=== PATIENT | male | born 1945 | race Caucasian/White ===

== ENCOUNTER 2016-07-16 08:42 | Day surgery (SDC) | payer MEDICARE ==
[~2016-07-16] VITALS: Ht 175.3 cm; Wt 85.0 kg
[~2016-07-16 08:42] MED LIST: [UNRECOGNIZED DRUG - REMARK]; [UNRECOGNIZED DRUG - REMARK]
[2016-07-16 09:00] VITALS: BP 136/86; PULSE 75; RESP 20; TEMP 98.4; O2SAT 96
[2016-07-16] MEDS ORDERED: AMLO5CAP PO (09:17)
[2016-07-16] MEDS ORDERED: SODIUM CHLOR 0.9% 1000 ML IV SCH (10:00)
[2016-07-16] MEDS ORDERED: LIDOCAINE 1%/EPINEPHrine 1:100,000 SOLN 20 ML VIAL ONE (10:33)
[2016-07-16] MEDS ORDERED: fentaNYL CITRATE 250 MCG/5 ML AMP ONE (10:50)
[2016-07-16] MEDS ORDERED: MIDAZOLAM HCL 5 MG/5 ML VIAL ONE (10:51)
[2016-07-16] MEDS ORDERED: THROMBIN (TOPICAL) 5,000 UNIT VIAL ONE (11:14)
[2016-07-16 11:40] VITALS: BP 126/76; PULSE 82; RESP 20; TEMP 97.9; O2SAT 95
[2016-07-16 11:55] VITALS: BP 117/75; PULSE 74; RESP 20; O2SAT 95
[2016-07-16 12:35] VITALS: BP 106/75; PULSE 74; RESP 20; O2SAT 97
--- NOTE | 2016-07-16 13:39 | RADRPT ---
EXAM DATE/TIME: 07/16/2016 11:05 [facility] COMPARISON: No previous studies available for comparison. INDICATIONS : Retrperitoneal lymphadenopathy. SEDATION TIME: 30 minutes BIOPSY SITE: Left MEDICATION(S): 1.) 2 mg midazolam (Versed) IV 2.) 100 mcg fentanyl (Sublimaze) IV DEVICE(S): 1.) 20 gauge Temno core biopsy needle MEDICAL HISTORY : Hypertension. SURGICAL HISTORY : None. ENCOUNTER: Initial ACUITY: 1 day PAIN SCORE: 0/10 LOCATION: Left retroperitoneum A total of three core specimen(s) were obtained and sent to the laboratory for pathologic evaluation. PROCEDURE: 1. CT guided abdomen biopsy. 2. Conscious sedation with continuous EKG and oximetry monitoring. 3. EKG and oximetry remained stable throughout the procedure. Prior to the procedure informed consent was obtained. Any appropriate prior imaging studies were rev iewed. Using automated exposure control and adjustment of the mA and/or kV according to patient size, radiat ion dose was kept as low as reasonably achievable to obtain optimal diagnostic quality images. The site was prepped in a sterile fashion. Full sterile technique was used, including cap, mask, praful rile gloves and gown and a large sterile sheet. Hand hygiene and 2% chlorhexidine and/or betadine/al cohol prep was utilized per protocol for cutaneous antisepsis. The skin and subcutaneous tissues wer e infiltrated with local anesthetic solution. Under CT guidance 18 gauge blunt was placed down to the record of adenopathy and multiple cores obtai genie. Tract was embolized with Gelfoam and thrombin. Follow-up CT scan reveals no hemorrhage. The patient tolerated the procedure well and there were no complications. The patient was returned to the Radiology Outpatient Unit in stable condition. CONCLUSION: Uncomplicated CT guided biopsy. Paulino Cortez MD FACR on July 16, 2016 at 13:37 Board Certified Radiologist. This report was verified electronically.
[2016-07-16] MEDS ORDERED: GELATIN 12 MM/7 MM FOAM ONE (14:00)
== END 2016-07-16 15:30 | disposition home or self-care (01) ==
LOC: HRAD 08:42 → HRIP 08:46 → HRAD 15:30
DX: R59.0 Localized enlarged lymph nodes (principal); I10 Essential (primary) hypertension
CPT/HCPCS: 49180; 77012; 88184; 88185; 88305; 88333; 88377; 99152; J2250; J3010

== ENCOUNTER 2016-09-03 06:01 | Day surgery (SDC) | payer MEDICARE ==
[2016-09-03] VITALS (11 sets, daily range): BP systolic 91–159; BP diastolic 55–104; PULSE 50–72; RESP 16–20; TEMP 97.8–98.3; O2SAT 93–97
[~2016-09-03] VITALS: Ht 170.2 cm; Wt 85.5 kg
[~2016-09-03 06:01] MED LIST changes: +AMLO5CAP PO
[2016-09-03] MEDS ORDERED: PREV15CA15 PO (06:40)
[2016-09-03] MEDS ORDERED: ceFAZolin 2 GM PREMIX 50 ML - implanted port/tunneled catheter insertion IV SCH (07:00)
[2016-09-03] MEDS ORDERED: SODIUM CHLORIDE FLUSH PRN IV FLUSH (07:00)
[2016-09-03] MEDS ORDERED: POVIDONE IODINE 5% (ANTISEPSIS KIT) 4 APPLICATIONS EACH NARE SCH (07:00)
[2016-09-03] MEDS ORDERED: SODIUM CHLOR 0.9% 1000 ML INJ 1,000 ML IV SCH (07:00)
[2016-09-03] MEDS ORDERED: SODIUM CHLORIDE 0.9% 1000 ML IV SCH (07:00)
[2016-09-03] MEDS ORDERED: VANCOMYCIN 1000 MG/NS 250 ML - implanted port/tunneled catheter IV SCH ×2 (07:00)
[2016-09-03] MEDS ORDERED: CHLORHEXIDINE GLUCONATE 2 % 1 PACK (2 CLOTHS) TOPICAL SCH (07:00)
[2016-09-03 07:20] LABS: AUTOMATED NEUTROPHIL # 4.5 TH/MM3 (1.8-7.7); BASOPHIL % 0.8 % (0.0-2.0); EOSINOPHIL # 0.1 TH/MM3 (0-0.4); HEMATOCRIT 46.8 % (39.0-51.0); HEMO FLAGS DIFF FINAL; LYMPH % 19.6 % (9.0-44.0); LYMPHOCYTE # 1.3 TH/MM3 (1.0-4.8); MEAN CELL VOLUME 86.5 FL (80.0-100.0); MEAN CORPUSCULAR HEMOGLOBIN 29.8 PG (27.0-34.0); MEAN CORPUSCULAR HGB CONC 34.4 % (32.0-36.0); MONO % 10.3 % (0.0-8.0); NEUT % 67.3 % (16.0-70.0); PLATELET COUNT 210 TH/MM3 (150-450); RED BLOOD COUNT 5.41 MIL/MM3 (4.50-5.90); RED CELL DISTRIBUTION WIDTH 13.6 % (11.6-17.2); WHITE BLOOD COUNT 6.6 TH/MM3 (4.0-11.0)
[2016-09-03] MEDS ORDERED: LIDOCAINE 1%/EPINEPHrine 1:100,000 SOLN 20 ML VIAL ONE ×2 (07:44→10:12)
[2016-09-03] MEDS ORDERED: MIDAZOLAM HCL 5 MG/5 ML VIAL ONE ×2 (07:57→09:45)
[2016-09-03] MEDS ORDERED: fentaNYL CITRATE 250 MCG/5 ML AMP ONE ×2 (07:57→09:46)
[2016-09-03] MEDS ORDERED: SODIUM CHLORIDE FLUSH BID IV FLUSH SCH (09:00)
[2016-09-03 10:02] LABS: BONE MARROW PROCESSING COMPLETE; IRON STAIN DONE; JENNER GIEMSA STAIN DONE
--- NOTE | 2016-09-03 10:22 | RADRPT ---
EXAM DATE/TIME: 09/03/2016 08:15 [facility] COMPARISON: No previous studies available for comparison. INDICATIONS : Non-Hodgkins lymphoma. SEDATION TIME: 20 minutes BIOPSY SITE: Right iliac MEDICATION(S): 1.) 2 mg midazolam (Versed) IV 2.) 100 mcg fentanyl (Sublimaze) IV DEVICE(S): 1.) 11 gauge Bone marrow biopsy needle MEDICAL HISTORY : Lymphoma. SURGICAL HISTORY : None. ENCOUNTER: Initial ACUITY: 1 day PAIN SCORE: 0/10 LOCATION: pelvis A total of one core specimen(s) were obtained and sent to the laboratory for pathologic evaluation. PROCEDURE: 1. CT guided bone marrow biopsy. 2. Conscious sedation with continuous EKG and oximetry monitoring. Prior to the procedure informed consent was obtained. Any appropriate prior imaging studies were rev iewed. Using automated exposure control and adjustment of the mA and/or kV according to patient size , radiation dose was kept as low as reasonably achievable to obtain optimal diagnostic quality images . DICOM format image data is available electronically for review and comparison. The site was prepped in a sterile fashion. Full sterile technique was used, including cap, mask, praful rile gloves and gown and a large sterile sheet. Hand hygiene and 2% chlorhexidine and/or betadine/al cohol prep was utilized per protocol for cutaneous antisepsis. The skin and subcutaneous tissues wer e infiltrated with local anesthetic solution. With CT guidance the previously identified target was localized. Biopsy was performed using the presc ribed needle as above. Following biopsy marrow aspiration was performed with repeat puncture. Adequa te hemostasis was obtained with compression at the puncture site. Follow-up CT scan reveals no hemorrhage. Conscious sedation was performed with the prescribed dosages and duration as above in the presence of an independent trained radiology nurse to assist in the monitoring of the patient. EKG and oximetry remained stable throughout the procedure. The patient tolerated the procedure well and there were no complications. The patient was sent to Radiology Outpatient Unit in stable condition. CONCLUSION: 1. Uncomplicated CT guided bone marrow aspirate. 2. Uncomplicated CT guided bone marrow biopsy. Paulino Cortez MD FACR on September 03, 2016 at 10:20 Board Certified Radiologist. This report was verified electronically.
[2016-09-03] MEDS ORDERED: SODIUM CHLORIDE 0.9% FLUSH 10 ML FLUSH IVF PRN (11:00)
--- NOTE | 2016-09-03 11:01 | PD.RAD ---
Post Procedure Progress Note Pre Procedure Diagnosis: (1) Cancer Post Procedure Diagnosis: (1) Cancer Procedure Date: Sep 03, 2016 Supervising Radiologist: Gerardo Branham Proceduralist/Assist: Vic Rea RT(R), RT Marge(R) Anesthesia: Conscious Sedation Plan of Activity Patient to Unit: [facility]OPU Patient Condition: Good See PACS Report for procedural detail/treatment Central Venous Access Device Procedure 1 Right Internal Jugular Infusaport Placement single lumen Gerardo Branham MD Sep 03, 2016 11:01
--- NOTE | 2016-09-03 11:23 | RADRPT ---
EXAM DATE/TIME: 09/03/2016 10:16 [facility] COMPARISON: No previous studies available for comparison. INDICATIONS : Patient presents with non hodgkin's lymphoma in need of port placement for chemotherapy treatment. MEDICAL HISTORY : HTN Lymphoma GERD Sleep apnea High cholesterol SURGICAL HISTORY : N/A ENCOUNTER: Initial ACUITY: 1 month PAIN SCORE: 0/10 LOCATION: N/A FLUORO TIME: 0.2 minutes IMAGE SERIES: 0 SEDATION TIME: 30 minutes ACCESS: Right internal jugular vein SEDATION: 1.) 3 mg midazolam (Versed) IV Prophylactic antibiotics were administered with appropriate pre-procedure timing. Vancomycin within 2 hours of procedure, Ancef (or alternative) within 1 hour of procedure. DEVICE: 1. 8 [place] single lumen Smart port CT w/vortex PROCEDURE : 1. Continuous pulse oximetry and EKG monitoring. 2. Intravenous conscious sedation. 3. Ultrasound guidance for venous access. 4. Fluoroscopic guided implantable central venous port placement. The patient was placed supine. The neck was prepped in sterile fashion. Full sterile technique was u sed, including cap, mask, sterile gloves and gown, and a large sterile sheet. Hand hygiene and 2% ch lorhexidine Betadine was utilized per protocol for cutaneous antisepsis with appropriate dry time for site. The skin and subcutaneous tissues were infiltrated with local anesthetic solution. Under direct ultrasound guidance, central venous access was accomplished in the targeted vessel. The ultrasound images depicting access guidance were stored and saved to PACS for permanent record. A s ubcutaneous pocket was created using blunt dissection. The port was introduced to the pocket. The c atheter tubing was fed through a subcutaneous tunnel to the venotomy site. The catheter tubing was c ut to a suitable length and then was introduced through a valved Peel-Away sheath and positioned with catheter tubing tip at the cavo-atrial junction level. The pocket incision was closed with subcutic ular Vicryl suture. Steri-Strips were applied. The port was flushed and locked with heparin solutio n per protocol. Sterile dressing was applied to the site. The patient tolerated the procedure well. Conscious sedation was performed with the prescribed dosages and duration as above in the presence of an independent trained radiology nurse to assist in the monitoring of the patient. EKG and oximetry remained stable throughout the procedure. The patient tolerated the procedure well and there were no complications. The patient was sent to post anesthesia recovery in stable condition. CONCLUSION: Uncomplicated ultrasound and fluoroscopic guided implanted central venous port catheter placement as described in detail above. An 8 Citizen Of [place] Power port was placed. Gerardo Branham MD on September 03, 2016 at 11:22 Board Certified Radiologist. This report was verified electronically.
== END 2016-09-03 13:15 | disposition home or self-care (01) ==
LOC: HROP 06:01 → HRIP 06:04 → HROP 13:15
PROVIDERS: ATTEND Internal Medicine Hematology & Oncology
DX: C85.90 Non-Hodgkin lymphoma, unspecified, unspecified site (principal); I10 Essential (primary) hypertension; K21.9 Gastro-esophageal reflux disease without esophagitis; G47.30 Sleep apnea, unspecified; E78.00 Pure hypercholesterolemia, unspecified; Z01.818 Encounter for other preprocedural examination
CPT/HCPCS: 36561; 38221; 76937; 77001; 77012; 85025; 85097; 88184; 88185; 88305; 88311; 88313; 99152; 99153; C1788; C1830; G0364; J0690; J1642; J2250; J3010; J3370; J7030; J7050

== ENCOUNTER 2016-10-18 17:14 | Inpatient (IN) | payer MEDICARE ==
[~2016-10-18] VITALS: Ht 170.2 cm; Wt 87.8 kg
[~2016-10-18 17:14] MED LIST changes: +PREV15CA15 PO
[2016-10-18 17:19] VITALS: BP 143/102; PULSE 124; RESP 20; TEMP 99.7; O2SAT 97
--- NOTE | 2016-10-18 17:28 | PD ---
Physical Exam Date Seen by Provider: Oct 18, 2016 Time Seen by Provider: 17:25 Narrative 70 y/o male here with Hx Lymphoma since end of August. Sent here by his Oncologist with recent fever and Chills today. Chills started last night. Fever today was 100.7. Sinus ESPINOZA last night. No other Symptoms. Vital Signs reviewed. Patient is Stable and awaiting Bed Placement. Data Data Last Documented VS Vital Signs Date Time Temp Pulse Resp B/P (MAP) Pulse Ox O2 Delivery O2 Flow Rate FiO2 10/18/16 17:19 99.7 124 20 143/102 (116) 97 Room Air [facility] Medical Record Reviewed: Yes Supervised Visit with MARLO: Yes Condition: Stable Bennie Carranza Oct 18, 2016 17:28
--- NOTE | 2016-10-18 17:38 | PD ---
HPI Chief Complaint: Fever Time Seen by Provider: 17:34 Travel History International Travel<30 days: No Contact w/Intl Traveler<30days: No Traveled to known affect area: No History of Present Illness HPI 70-year-old male with history of hypertension, lymphoma, currently undergoing chemotherapy, followed by Dr. Schwartz, presents to the emergency department today for evaluation of fever. Patient states he developed a fever with company chills this morning and they have persisted throughout the day. He states he has otherwise been well. He has no chest tightness. No cough or congestion. No urinary symptoms. No abdominal pain. Patient has not been nauseous vomiting. He has no other symptoms to report. PFSH Past Medical History Cancer: Yes (SKIN CANCER) Cardiovascular Problems: Yes (HTN) Chemotherapy: Yes (LYMPHOMA) Diabetes: No Endocrine: No Genitourinary: No Hepatitis: No Hiatal Hernia: No Hypertension: Yes Immune Disorder: No Musculoskeletal: No Neurologic: No Psychiatric: No Reproductive: No Respiratory: No Thyroid Disease: No Past Surgical History Abdominal Surgery: No AICD: No Cardiac Surgery: No Ear Surgery: No Endocrine Surgery: No Eye Surgery: No Genitourinary Surgery: No Gynecologic Surgery: No Joint Replacement: No Oral Surgery: No Pacemaker: No Thoracic Surgery: No Social History Alcohol Use: No Tobacco Use: No Substance Use: No Allergies-Medications (Allergen,Severity, Reaction): Coded Allergies: No Known Allergies (Verified , 10/18/16) Reported Meds & Prescriptions Reported Meds & Active Scripts Active Reported Treanda Inj (Bendamustine HCl) 25 Mg Inj 25 Mg IV MONTHLY Prevacid (Lansoprazole) 15 Mg Capdr 15 Mg PO DAILY Amlodipine-Benazepril 5-10 Mg Cap 1 Cap PO DAILY Review of Systems Except as stated in HPI: all other systems reviewed are Neg Physical Exam Narrative GENERAL: Well-nourished male patient, in no acute distress SKIN: Focused skin assessment warm/dry. HEAD: Atraumatic. Normocephalic. EYES: Pupils equal and round. No scleral icterus. No injection or drainage. ENT: No nasal bleeding or discharge. Mucous membranes pink and moist. NECK: Trachea midline. No JVD. CARDIOVASCULAR: Tachycardic rate and rhythm. RESPIRATORY: No accessory muscle use. Clear to auscultation. Breath sounds equal bilaterally. GASTROINTESTINAL: Abdomen soft, non-tender, nondistended. Hepatic and splenic margins not palpable. MUSCULOSKELETAL: No obvious deformities. No clubbing. No cyanosis. No edema. NEUROLOGICAL: Awake and alert. No obvious cranial nerve deficits. Motor grossly within normal limits. Normal speech. PSYCHIATRIC: Appropriate mood and affect; insight and judgment normal. Data Data Last Documented VS Vital Signs Date Time Temp Pulse Resp B/P (MAP) Pulse Ox O2 Delivery O2 Flow Rate FiO2 10/18/16 18:19 99.8 108 40 128/87 (101) 95 Room Air Orders Orders Electrocardiogram (10/18/16 17:34) Complete Blood Count With Diff (10/18/16 17:34) Comprehensive Metabolic Panel (10/18/16 17:34) Prothrombin Time / Inr (Pt) (10/18/16 17:34) Act Partial Throm Time (Ptt) (10/18/16 17:34) Lactic Acid Sepsis Protocol (10/18/16 17:34) Urinalysis - C+S If Indicated (10/18/16 17:34) Blood Culture (10/18/16 17:34) Chest, Single Ap (10/18/16 17:34) Blood Glucose (10/18/16 17:34) Ecg Monitoring (10/18/16 17:34) Iv Access Insert/Monitor (10/18/16 17:34) Oximetry (10/18/16 17:34) Oxygen Administration (10/18/16 17:34) Sodium Chlor 0.9% 1000 Ml Inj (Ns 1000 M (10/18/16 18:00) Cefepime Inj (Maxipime Inj) (10/18/16 19:15) Vancomycin Inj (Vancomycin Inj) (10/18/16 20:32) Cefepime Inj (Maxipime Inj) (10/18/16 20:45) Isolation (10/18/16 20:47) Equip, Isolation Cart (10/18/16 20:47) Labs Laboratory Tests Test 10/18/16 18:05 10/18/16 20:00 White Blood Count 2.6 TH/MM3 Red Blood Count 4.79 MIL/MM3 Hemoglobin 14.6 GM/DL Hematocrit 43.1 % Mean Corpuscular Volume 89.9 FL Mean Corpuscular Hemoglobin 30.4 PG Mean Corpuscular Hemoglobin Concent 33.8 % Red Cell Distribution Width 13.7 % Platelet Count 243 TH/MM3 Mean Platelet Volume 8.0 FL CBC Comment AUTO DIFF Differential Total Cells Counted 100 Neutrophils % (Manual) 1 % Band Neutrophils % 1 % Lymphocytes % 30 % Monocytes % 56 % Eosinophils % 8 % Basophils % 4 % Neutrophils # (Manual) 0.1 TH/MM3 Differential Comment FINAL DIFF MANUAL Platelet Estimate NORMAL Platelet Morphology Comment NORMAL Red Cell Morphology Comment NORMAL Prothrombin Time 10.3 SEC Prothromb Time International Ratio 0.9 RATIO Activated Partial Thromboplast Time 35.8 SEC Blood Urea Nitrogen 11 MG/DL Creatinine 1.06 MG/DL Random Glucose 143 MG/DL Total Protein 6.9 GM/DL Albumin 3.7 GM/DL Calcium Level 8.5 MG/DL Alkaline Phosphatase 68 U/L Aspartate Amino Transf (AST/SGOT) 20 U/L Alanine Aminotransferase (ALT/SGPT) 20 U/L Total Bilirubin 0.6 MG/DL Sodium Level 139 MEQ/L Potassium Level 3.7 MEQ/L Chloride Level 106 MEQ/L Carbon Dioxide Level 24.6 MEQ/L Anion Gap 8 MEQ/L Estimat Glomerular Filtration Rate 69 ML/MIN Urine Color LIGHT-YELLOW Urine Turbidity CLEAR Urine pH 8.0 Urine Specific [place] 1.009 Urine Protein NEG mg/dL Urine Glucose (UA) NEG mg/dL Urine Ketones NEG mg/dL Urine Occult Blood NEG Urine Nitrite NEG Urine Bilirubin NEG Urine Urobilinogen LESS THAN 2.0 MG/DL Urine Leukocyte Esterase NEG Urine WBC LESS THAN 1 /hpf Microscopic Urinalysis Comment CULT NOT INDICATED Lactic Acid Level 1.0 mmol/L MDM Medical Decision Making Medical Screen Exam Complete: Yes Emergency Medical Condition: Yes Medical Record Reviewed: Yes Differential Diagnosis Neutropenic fever versus pneumonia versus sepsis versus bacteremia Narrative Course 70-year-old male presents to the emergency department for evaluation of a fever , acute onset with associated chills. Patient has low-grade temperature here 99.7. He is tachycardic. He overall appears well. Sepsis workup have been initiated. Laboratory Tests Test 10/18/16 18:05 10/18/16 20:00 White Blood Count 2.6 TH/MM3 Red Blood Count 4.79 MIL/MM3 Hemoglobin 14.6 GM/DL Hematocrit 43.1 % Mean Corpuscular Volume 89.9 FL Mean Corpuscular Hemoglobin 30.4 PG Mean Corpuscular Hemoglobin Concent 33.8 % Red Cell Distribution Width 13.7 % Platelet Count 243 TH/MM3 Mean Platelet Volume 8.0 FL CBC Comment AUTO DIFF Differential Total Cells Counted 100 Neutrophils % (Manual) 1 % Band Neutrophils % 1 % Lymphocytes % 30 % Monocytes % 56 % Eosinophils % 8 % Basophils % 4 % Neutrophils # (Manual) 0.1 TH/MM3 Differential Comment FINAL DIFF MANUAL Platelet Estimate NORMAL Platelet Morphology Comment NORMAL Red Cell Morphology Comment NORMAL Prothrombin Time 10.3 SEC Prothromb Time International Ratio 0.9 RATIO Activated Partial Thromboplast Time 35.8 SEC Blood Urea Nitrogen 11 MG/DL Creatinine 1.06 MG/DL Random Glucose 143 MG/DL Total Protein 6.9 GM/DL Albumin 3.7 GM/DL Calcium Level 8.5 MG/DL Alkaline Phosphatase 68 U/L Aspartate Amino Transf (AST/SGOT) 20 U/L Alanine Aminotransferase (ALT/SGPT) 20 U/L Total Bilirubin 0.6 MG/DL Sodium Level 139 MEQ/L Potassium Level 3.7 MEQ/L Chloride Level 106 MEQ/L Carbon Dioxide Level 24.6 MEQ/L Anion Gap 8 MEQ/L Estimat Glomerular Filtration Rate 69 ML/MIN Urine Color LIGHT-YELLOW Urine Turbidity CLEAR Urine pH 8.0 Urine Specific [place] 1.009 Urine Protein NEG mg/dL Urine Glucose (UA) NEG mg/dL Urine Ketones NEG mg/dL Urine Occult Blood NEG Urine Nitrite NEG Urine Bilirubin NEG Urine Urobilinogen LESS THAN 2.0 MG/DL Urine Leukocyte Esterase NEG Urine WBC LESS THAN 1 /hpf Microscopic Urinalysis Comment CULT NOT INDICATED Lactic Acid Level 1.0 mmol/L I received a call from the lab. Patient's absolute neutrophil count is 0.1. Patient is given IV cefepime and Vancomycin I have discussed the patient with Dr. Liriano who requested admission to medicine. A call has been placed to [facility] for admission. Sepsis Criteria SIRS Criteria (2 or more): Heart rate over 90, WBC > 10462, < 4000 or > 10% bands Diagnosis Primary Impression: Neutropenic fever Additional Impression: Lymphoma Qualified Codes: C85.90 - Non-Hodgkin lymphoma, unspecified, unspecified site Admitting Information Admitting Physician Requests: Admit Condition: Stable Tessy Sloan Oct 18, 2016 17:38
--- NOTE | 2016-10-18 17:57 | RADRPT ---
EXAM DATE/TIME: 10/18/2016 17:45 [facility] COMPARISON: No previous studies available for comparison. INDICATIONS : Fever. MEDICAL HISTORY : Hypertension. Lymphoma SURGICAL HISTORY : Right side chest port. ENCOUNTER: Initial ACUITY: 1 day PAIN SCORE: 0/10 LOCATION: Bilateral chest FINDINGS: A single view of the chest demonstrates the lungs to be symmetrically aerated without evidence of mas s, infiltrate or effusion. Mild cardiomegaly. No pulmonary vascular engorgement observed. Port-A-Cath overlies the right chest. Osseous structures are intact. CONCLUSION: 1. Cardiomegaly. 2. Clear lungs. Jaden Easton Jr., MD on October 18, 2016 at 17:52 Board Certified Radiologist. This report was verified electronically.
[2016-10-18] MEDS ORDERED: SODIUM CHLOR 0.9% 1000 ML INJ 1,000 ML IV ONE (18:00)
[2016-10-18 18:09] VITALS: RESP 40; O2SAT 95
[2016-10-18] MEDS ORDERED: [UNRECOGNIZED DRUG - CODE] IV (18:18)
[2016-10-18 18:19] VITALS: BP 128/87; PULSE 108; RESP 40; TEMP 99.8; O2SAT 95
[2016-10-18 19:00] VITALS: BP 154/82; PULSE 90; RESP 18; O2SAT 97
[2016-10-18 19:12] LABS: APTT (PATIENT) 35.8 SEC (24.3-30.1); INTERNATIONAL NORMALIZED RATIO 0.9 RATIO; PROTHROMBIN TIME - PATIENT 10.3 SEC (9.8-11.6)
[2016-10-18] MEDS ORDERED: CEFEPIME INJ 1,000 MG in SODIUM CHLORIDE 0.9% INJ 100 ML IV ONE ×2 (19:15→20:45)
[2016-10-18 19:21] LABS: ANION GAP 8 MEQ/L (5-15); AST (GOT) 20 U/L (15-37); BICARBONATE 24.6 MEQ/L (21.0-32.0); BLOOD UREA NITROGEN 11 MG/DL (7-18); CHLORIDE 106 MEQ/L (98-107); GLOMERULAR FILTRATION RATE 69 ML/MIN (>89); POTASSIUM 3.7 MEQ/L (3.5-5.1); SODIUM (NA) 139 MEQ/L (136-145)
[2016-10-18 19:22] LABS: ALT (GPT) 20 U/L (12-78)
[2016-10-18 19:24] LABS: ALKALINE PHOSPHATASE 68 U/L (45-117); TOTAL BILIRUBIN ADULT 0.6 MG/DL (0.2-1.0)
[2016-10-18 20:17] LABS: HEMATOCRIT 43.1 % (39.0-51.0); MEAN CELL VOLUME 89.9 FL (80.0-100.0); MEAN CORPUSCULAR HEMOGLOBIN 30.4 PG (27.0-34.0); MEAN CORPUSCULAR HGB CONC 33.8 % (32.0-36.0); PLATELET COUNT 243 TH/MM3 (150-450); RED BLOOD COUNT 4.79 MIL/MM3 (4.50-5.90); RED CELL DISTRIBUTION WIDTH 13.7 % (11.6-17.2); WHITE BLOOD COUNT 2.6 TH/MM3 (4.0-11.0)
[2016-10-18 20:20] LABS: HEMO FLAGS AUTO DIFF
[2016-10-18 20:26] LABS: BANDS 1 % (0-6); BASOPHILS 4 % (0-2); EOSINOPHILS 8 % (0-4); POLYS (SEG NEUTROPHILS) 1 % (16-70); WBC DIFF SAMPLE 100
[2016-10-18 20:27] LABS: PLATELET ESTIMATE SMEAR NORMAL (NORMAL); PLATELET MORPHOLOGY NORMAL (NORMAL); SCAN/DIFF FINAL DIFF MANUAL
[2016-10-18 20:29] LABS: NEUTROPHIL # MANUAL DIFF 0.1 TH/MM3 (1.8-7.7)
[2016-10-18] MEDS ORDERED: VANCOMYCIN INJ 1,000 MG in SODIUM CHLOR 0.9% 250 ML INJ 250 ML IV STA (20:32)
[2016-10-18 20:36] LABS: BLOOD, URINE NEG (NEG); COMMENT (UR) CULT NOT INDICATED; CULTURE IF INDICATED CULT NOT INDICATED; GLUCOSE,URINE NEG (NEG); KETONE, URINE NEG (NEG); NITRITE,URINE NEG (NEG); URINE COLOR LIGHT-YELLOW (YELLW/STRAW)
[2016-10-18] MEDS ORDERED: MAGNESIUM HYDROXIDE SUSP 30 ML CUP PO PRN (21:00)
[2016-10-18] MEDS ORDERED: Vancomycin Consult Pharmacy 1 EA OTHER SCH (21:00)
[2016-10-18] MEDS ORDERED: NALOXONE HCL 0.4 MG/ML AMP IV PRN (21:00)
[2016-10-18] MEDS ORDERED: ENALAPRILAT 1.25 MG/ML VIAL IV PRN (21:00)
[2016-10-18] MEDS ORDERED: SENNOSIDES 8.6 MG TAB PO PRN (21:00)
[2016-10-18] MEDS ORDERED: LACTULOSE SYRUP 20 GM/30 ML CUP PO PRN (21:00)
[2016-10-18] MEDS ORDERED: SODIUM CHLORIDE 0.9% FLUSH 10 ML FLUSH IV FLUSH PRN (21:00)
[2016-10-18] MEDS ORDERED: ONDANSETRON HCL 4 MG/2 ML VIAL IVP PRN (21:00)
[2016-10-18 21:05] VITALS: BP 143/88; PULSE 112; RESP 18; O2SAT 99
--- NOTE | 2016-10-18 21:29 | HHI.HP ---
HPI Service [facility] ([place], [place])ists Primary Care Physician Adele Bennett MD Admission Diagnosis neutropenic fever Diagnoses: Chief Complaint: Fever Travel History International Travel<30 Days: No Contact w/Intl Traveler <30 Da: No Traveled to Known Affected Are: No Sepsis Criteria SIRS Criteria (2 or more): Heart rate over 90, RR > 20 or PaCO2 < 32 Sepsis Criteria (SIRS+source): Infect source susp/known Criteria Outcome: Meets sepsis criteria History of Present Illness This is a 70-year-old male with history of hypertension, GERD, skin cancer and non-Hodgkin's lymphoma on chemotherapy followed by Dr. Liriano. Last chemotherapy via port was over 2 weeks ago. He has been doing well until today when he developed fever associated with chills. He also has sinus headache and neck soreness with fever. No visual changes, dizziness, numbness, focal weakness, nausea, cough, abdominal pain, UTI symptoms and diarrhea. No skin rash. Absolute neutrophil count is 0.26 and has been started on broad spectrum antibiotic with IV vancomycin and cefepime in the emergency department. Chest x -ray and urinalysis unremarkable. His oncologist requested admission to medicine service. All other systems reviewed negative Review of Systems Except as stated in HPI: all other systems reviewed are Neg Past Family Social History Past Medical History As previously mentioned Past Surgical History Port placement Reported Medications Treanda Inj (Bendamustine HCl) 25 Mg Inj 25 Mg IV MONTHLY Prevacid (Lansoprazole) 15 Mg Capdr 15 Mg PO DAILY Amlodipine-Benazepril 5-10 Mg Cap 1 Cap PO DAILY Allergies: Coded Allergies: No Known Allergies (Verified , 10/18/16) Family History Lung cancer Social History Does not smoke or drink Physical Exam Vital Signs Vital Signs Date Time Temp Pulse Resp B/P (MAP) Pulse Ox O2 Delivery O2 Flow Rate FiO2 10/18/16 21:05 112 18 143/88 (106) 99 Room Air 10/18/16 19:00 90 18 154/82 (106) 97 Room Air 10/18/16 18:19 99.8 108 40 128/87 (101) 95 Room Air 10/18/16 18:09 40 95 Room Air 10/18/16 18:09 45 10/18/16 17:19 99.7 124 20 143/102 (116) 97 Room Air Physical Exam GENERAL: This is a well-nourished, well-developed patient, in no apparent distress. SKIN: No rashes, ecchymoses or lesions. Cool and dry. HEAD: Atraumatic. Normocephalic. No temporal or scalp tenderness. EYES: Pupils equal round and reactive. Extraocular motions intact. No scleral icterus. No injection or drainage. ENT: Nose without bleeding, purulent drainage or septal hematoma. Throat without erythema, tonsillar hypertrophy or exudate. Uvula midline. Airway patent. No sinus tenderness NECK: Trachea midline. No JVD or lymphadenopathy. Supple, nontender, no meningeal signs. CARDIOVASCULAR: Regular rate and rhythm without murmurs, gallops, or rubs. RESPIRATORY: Clear to auscultation. Breath sounds equal bilaterally. No wheezes , rales, or rhonchi. Port in place with no signs of infection GASTROINTESTINAL: Abdomen soft, non-tender, nondistended. No guarding. MUSCULOSKELETAL: Extremities without clubbing, cyanosis, or edema. No joint tenderness, effusion, or edema noted. No calf tenderness. Negative Homans sign bilaterally. NEUROLOGICAL: Awake and alert. Cranial nerves II through XII intact. Motor and sensory grossly within normal limits. Five out of 5 muscle strength in all muscle groups. Normal speech. Laboratory Laboratory Tests Test 10/18/16 18:05 10/18/16 20:00 White Blood Count 2.6 Red Blood Count 4.79 Hemoglobin 14.6 Hematocrit 43.1 Mean Corpuscular Volume 89.9 Mean Corpuscular Hemoglobin 30.4 Mean Corpuscular Hemoglobin Concent 33.8 Red Cell Distribution Width 13.7 Platelet Count 243 Mean Platelet Volume 8.0 CBC Comment AUTO DIFF Differential Total Cells Counted 100 Neutrophils % (Manual) 1 Band Neutrophils % 1 Lymphocytes % 30 Monocytes % 56 Eosinophils % 8 Basophils % 4 Neutrophils # (Manual) 0.1 Differential Comment FINAL DIFF MANUAL Platelet Estimate NORMAL Platelet Morphology Comment NORMAL Red Cell Morphology Comment NORMAL Prothrombin Time 10.3 Prothromb Time International Ratio 0.9 Activated Partial Thromboplast Time 35.8 Blood Urea Nitrogen 11 Creatinine 1.06 Random Glucose 143 Total Protein 6.9 Albumin 3.7 Calcium Level 8.5 Alkaline Phosphatase 68 Aspartate Amino Transf (AST/SGOT) 20 Alanine Aminotransferase (ALT/SGPT) 20 Total Bilirubin 0.6 Sodium Level 139 Potassium Level 3.7 Chloride Level 106 Carbon Dioxide Level 24.6 Anion Gap 8 Estimat Glomerular Filtration Rate 69 Urine Color LIGHT-YELLOW Urine Turbidity CLEAR Urine pH 8.0 Urine Specific [place] 1.009 Urine Protein NEG Urine Glucose (UA) NEG Urine Ketones NEG Urine Occult Blood NEG Urine Nitrite NEG Urine Bilirubin NEG Urine Urobilinogen LESS THAN 2.0 Urine Leukocyte Esterase NEG Urine WBC LESS THAN 1 Microscopic Urinalysis Comment CULT NOT INDICATED Lactic Acid Level 1.0 Date/Time Source Procedure Growth Status 10/18/16 18:05 Blood Peripheral Aerobic Blood Culture Pending Received 10/18/16 18:05 Blood Peripheral Anaerobic Blood Culture Pending Received Result Diagram: 10/18/16180410/18/16 180 Imaging Chest x-ray image interpreted by me with no acute cardiopulmonary disease Caprini VTE Risk Assessment Caprini VTE Risk Assessment: Mod/High Risk (score >= 2) Caprini Risk Assessment Model Point Value = 1 Point Value = 2 Point Value = 3 Point Value = 5 Age 41-60 Minor surgery BMI > 25 kg/m2 Swollen legs Varicose veins or History of unexplained or recurrent spontaneous Oral contraceptives or hormone replacement Sepsis (< 1 month) Serious lung disease, including pneumonia (< 1 month) Abnormal pulmonary function Acute myocardial infarction Congestive heart failure (< 1 month) History of inflammatory bowel disease Medical patient at bed rest Age 61-74 Arthroscopic surgery Major open surgery (> 45 min) Laparoscopic surgery (> 45 min) Malignancy Confined to bed (> 72 hours) Immobilizing plaster cast Central venous access Age >= 75 History of VTE Family history of VTE Factor V Leiden Prothrombin [id number] Lupus anticoagulant Anticardiolipin antibodies Elevated serum homocysteine Heparin-induced thrombocytopenia Other congenital or acquired thrombophilia Stroke (< 1 month) Elective arthroplasty Hip, pelvis, or leg fracture Acute spinal cord injury (< 1 month) Prophylaxis Regimen Total Risk Factor Score Risk Level Prophylaxis Regimen 0-1 Low Early ambulation 2 Moderate Order ONE of the following: *Sequential Compression Device (SCD) *Heparin 5000 units SQ BID 3-4 Higher Order ONE of the following medications: *Heparin 5000 units SQ TID *Enoxaparin/Lovenox 40 mg SQ daily (WT < 150 kg, CrCl > 30 mL/min) *Enoxaparin/Lovenox 30 mg SQ daily (WT < 150 kg, CrCl > 10-29 mL/min) *Enoxaparin/Lovenox 30 mg SQ BID (WT < 150 kg, CrCl > 30 mL/min) AND/OR *Sequential Compression Device (SCD) 5 or more Highest Order ONE of the following medications: *Heparin 5000 units SQ TID (Preferred with Epidurals) *Enoxaparin/Lovenox 40 mg SQ daily (WT < 150 kg, CrCl > 30 mL/min) *Enoxaparin/Lovenox 30 mg SQ daily (WT < 150 kg, CrCl > 10-29 mL/min) *Enoxaparin/Lovenox 30 mg SQ BID (WT < 150 kg, CrCl > 30 mL/min) AND *Sequential Compression Device (SCD) Assessment and Plan Assessment and Plan This is a 70-year-old male with history of hypertension, GERD, skin cancer and non-Hodgkin's lymphoma on chemotherapy followed by Dr. Liriano. Last chemotherapy via port was over 2 weeks ago. He has been doing well until today when he developed fever associated with chills. He also has sinus headache and neck soreness with fever. No visual changes, dizziness, numbness, focal weakness, nausea, cough, abdominal pain, UTI symptoms and diarrhea. No skin rash. Absolute neutrophil count is 0.26 and has been started on broad spectrum antibiotic with IV vancomycin and cefepime in the emergency department. Chest x -ray and urinalysis unremarkable. His oncologist requested admission to medicine service. Sepsis with neutropenic fever. Chest x-ray and urinalysis unremarkable. Continue broad-spectrum antibiotic with IV vancomycin and significant and follow -up blood culture. Patient has a port. Consider head CT. At this time, he is neurologically intact. No neck stiffness or tenderness Hypertension. Stable continue amlodipine and benazepril and monitor GERD. Continue Prevacid n DVT prophylaxis with SCD and subcutaneous heparin Discussed Condition With Patient and Dony De Anda MD Oct 18, 2016 21:29
[2016-10-18] MEDS: DOCUSATE SODIUM 50 MG/SENNA 8.6 MG TAB PO SCH (21:58)
[2016-10-18] MEDS: SODIUM CHLORIDE 0.9% FLUSH 10 ML FLUSH IV FLUSH SCH (21:58)
[2016-10-18] MEDS: HEPARIN SODIUM - SQ 10,000 UNITS/ML VIAL SQ SCH (21:59)
[2016-10-19] VITALS (8 sets, daily range): BP systolic 116–146; BP diastolic 76–89; PULSE 61–117; RESP 16–18; TEMP 96.8–99.5; O2SAT 94–96
[2016-10-19] MEDS: ACETAMINOPHEN 325 MG TAB PO PRN ×3 (00:25→23:10)
[2016-10-19] MEDS: SODIUM CHLOR 0.9% 1000 ML INJ 1,000 ML IV SCH ×2 (04:03→16:58)
[2016-10-19] MEDS: CEFEPIME INJ 2,000 MG in SODIUM CHLORIDE 0.9% INJ 100 ML IV SCH ×3 (04:03→20:57)
[2016-10-19] MEDS: HEPARIN SODIUM - SQ 10,000 UNITS/ML VIAL SQ SCH ×3 (04:04→20:58)
[2016-10-19] MEDS: PANTOPRAZOLE SOD 20 MG DELAYED RELEASE TAB PO SCH (08:30)
[2016-10-19] MEDS: LISINOPRIL 10 MG TAB PO SCH (08:31)
[2016-10-19] MEDS: DOCUSATE SODIUM 50 MG/SENNA 8.6 MG TAB PO SCH ×2 (08:31→20:58)
[2016-10-19] MEDS: amLODIPine BESYLATE 5 MG TAB PO SCH (08:31)
[2016-10-19] MEDS: VANCOMYCIN 1,000 MG/NS 250 ML IV SCH ×4 (08:32→20:58)
--- NOTE | 2016-10-19 08:56 | HHI.PR ---
Subjective Remarks Patient complained of persistent dull frontal headache. No lightheadedness with change in vision. No neck stiffness. Objective Vitals Vital Signs Date Time Temp Pulse Resp B/P (MAP) Pulse Ox O2 Delivery O2 Flow Rate FiO2 10/19/16 08:28 97.4 78 16 135/88 (104) 96 10/19/16 04:00 96.8 81 17 116/83 (94) 96 10/19/16 00:00 99.5 117 18 146/89 (108) 94 10/18/16 22:22 10/18/16 21:05 112 18 143/88 (106) 99 Room Air 10/18/16 19:00 90 18 154/82 (106) 97 Room Air 10/18/16 18:19 99.8 108 40 128/87 (101) 95 Room Air 10/18/16 18:09 40 95 Room Air 10/18/16 18:09 45 10/18/16 17:19 99.7 124 20 143/102 (116) 97 Room Air I/O 10/18/16 10/18/16 10/18/16 10/19/16 10/19/16 10/19/16 06:59 14:59 22:59 06:59 14:59 22:59 Intake Total 1200 ml 205 ml Output Total 400 ml Balance 1200 ml -195 ml Intake IV Total 1200 ml 205 ml Output Urine Total 400 ml # Voids 1 Result Diagram: 10/18/16180410/18/161804 Objective Remarks GENERAL: This is a well-nourished, well-developed patient, in no apparent distress. CARDIOVASCULAR: Normal rate and regular rhythm without murmurs, gallops, or rubs. RESPIRATORY: Good respiratory efforts. Breath sounds equal and clear to auscultation bilaterally. GASTROINTESTINAL: Abdomen soft, non-tender, non-distended. Normal active bowel sounds MUSCULOSKELETAL: Extremities without cyanosis, or edema. NEURO: Alert & Oriented x4 to person, place, time, situation. Moves all ext x4 PSYCH: Appropriate mood and affect. A/P Problem List: (1) Neutropenic fever ICD Code: D70.9 - Neutropenia, unspecified; R50.81 - Fever presenting with conditions classified elsewhere Status: Acute (2) Lymphoma ICD Code: C85.90 - Non-Hodgkin lymphoma, unspecified, unspecified site Status: Acute (3) Hypertension ICD Code: I10 - Essential (primary) hypertension (4) GERD (gastroesophageal reflux disease) ICD Code: K21.9 - Gastro-esophageal reflux disease without esophagitis Assessment and Plan 70-year-old male with history of hypertension, GERD, skin cancer and non-Hodgkin 's lymphoma on chemotherapy followed by Dr. Liriano. Last chemotherapy via port was over 2 weeks ago. He has been doing well until the day of admission when he developed fever associated with chills. He also initially complained of a sinus headache and neck soreness with fever. No visual changes, dizziness, numbness, focal weakness, nausea, cough, abdominal pain, UTI symptoms and diarrhea. No skin rash. Absolute neutrophil count is 0.26 and has been started on broad spectrum antibiotic with IV vancomycin and cefepime in the emergency department. Chest x-ray and urinalysis unremarkable. His oncologist requested admission to medicine service. Neutropenic fever. No clear source of infection. Chest x-ray and urinalysis unremarkable. Continue broad-spectrum antibiotic with IV vancomycin and cefepime. Follow-up blood culture. Patient has a port. Given persistent headache, will obtain MRI of the brain to rule out metastatic disease. No convincing evidence of MANAGEMENT COORDINATOR infection. No neck stiffness. - Follow blood count. Non-Hodgkin's lymphoma: Followed by Dr. Liriano. He has efrain consulted for assistance. Hypertension. Stable continue amlodipine and benazepril and monitor GERD. Continue Prevacid n DVT prophylaxis with SCD and subcutaneous heparin Problem Qualifiers (1) Lymphoma: Qualified Codes: C85.90 - Non-Hodgkin lymphoma, unspecified, unspecified site Laron Lux MD Oct 19, 2016 08:56
[2016-10-19] MEDS: SODIUM CHLORIDE 0.9% FLUSH 10 ML FLUSH IV FLUSH SCH ×2 (09:00→20:31)
[2016-10-19] MEDS ORDERED: NON-FORMULARY DRUG (Amlodipine-Benazepril 1 CAP) PO SCH (09:00)
[2016-10-19] MEDS ORDERED: GADODIAMIDE PF 287 MG/ML 20 ML VIAL (for RAD MRI) IVCONTRAST ONE (14:01)
--- NOTE | 2016-10-19 14:17 | EKG ---
Date Performed: 10/18/2016 Time Performed: 18:26:26 PTAGE: 70 years EKG: SINUS TACHYCARDIA WITH OCCASIONAL SUPRAVENTRICULAR PREMATURE COMPLEXES RIGHT BUNDLE BRANCH BLOCK ABNORMAL ECG Compared to PREVIOUS TRACING , the sinus tachycardia and the frequent PACs are new. There has been a slight increase in the ST-T wave changes associated with the right bundle branch block. PREVIOUS TRAC IN08/24/2010 12.03 DOCTOR: Elidia Bernal Interpretating Date/Time 10/19/2016 14:16:56
--- NOTE | 2016-10-19 17:09 | RADRPT ---
EXAM DATE/TIME: 10/19/2016 13:49 [facility] COMPARISON: No previous studies available for comparison. EXTERNAL COMPARISON : [facility], PET/CT TUMOR, September 08, 2016[facility], MR LUMBAR SPINE W/O CONTRAST, July 01, 2016. INDICATIONS : Metastatic disease. Headache. CONTRAST: 17 cc Omniscan (gadodiamide) IV MEDICAL HISTORY : Lymphoma. Hypertension. SURGICAL HISTORY : Hand surgery, cancer removed from leg and bone marrow biopsy. ENCOUNTER: Subsequent ACUITY: 1 month PAIN SCORE: 6/10 LOCATION: Head. TECHNIQUE: Multiplanar, multisequence MRI of the brain was performed both prior to and following the administrat ion of paramagnetic contrast. FINDINGS: There is no evidence for acute infarction on diffusion weighted imaging. A few scattered foci of incr eased flair signal in the bilateral centrum semiovale and periventricular white matter. There is mild ventriculomegaly involving the lateral ventricles. There is mild prominence of the cortical sulci gr eatest in the frontal regions. The aqueduct appears patent. There is no hemorrhage, or mass. Specific ally there is no evidence for metastatic disease. CONCLUSION: 1. Volume loss without evidence for metastatic disease. 2. Minimal white matter disease. Tyrone Escobar MD on October 19, 2016 at 17:04 Board Certified Radiologist. This report was verified electronically.
[2016-10-20] VITALS (7 sets, daily range): BP systolic 134–149; BP diastolic 83–95; PULSE 62–92; RESP 16–20; TEMP 96.6–97.5; O2SAT 95–98
[2016-10-20] MEDS: SODIUM CHLOR 0.9% 1000 ML INJ 1,000 ML IV SCH (01:47)
[2016-10-20] MEDS: ACETAMINOPHEN 325 MG TAB PO PRN ×4 (03:51→23:20)
[2016-10-20] MEDS: HEPARIN SODIUM - SQ 10,000 UNITS/ML VIAL SQ SCH ×3 (04:00→21:35)
[2016-10-20] MEDS: CEFEPIME INJ 2,000 MG in SODIUM CHLORIDE 0.9% INJ 100 ML IV SCH ×3 (04:00→21:36)
[2016-10-20 06:59] LABS: MEAN CELL VOLUME 90.4 FL (80.0-100.0); MEAN CORPUSCULAR HEMOGLOBIN 30.2 PG (27.0-34.0); MEAN CORPUSCULAR HGB CONC 33.4 % (32.0-36.0); PLATELET COUNT 212 TH/MM3 (150-450); RED BLOOD COUNT 4.76 MIL/MM3 (4.50-5.90); RED CELL DISTRIBUTION WIDTH 13.7 % (11.6-17.2); WHITE BLOOD COUNT 3.1 TH/MM3 (4.0-11.0)
[2016-10-20 07:14] LABS: HEMO FLAGS AUTO DIFF
[2016-10-20 07:23] LABS: BICARBONATE 25.3 MEQ/L (21.0-32.0); POTASSIUM 3.7 MEQ/L (3.5-5.1)
[2016-10-20 08:01] LABS: BANDS 3 % (0-6); EOSINOPHILS 11 % (0-4); METAMYELOCYTES 1 % (0-1); MYELOCYTES 1 % (0-0); NEUTROPHIL # MANUAL DIFF 0.4 TH/MM3 (1.8-7.7); POLYS (SEG NEUTROPHILS) 6 % (16-70); PROMYELOCYTES 1 % (0-0); WBC DIFF SAMPLE 100
[2016-10-20 08:03] LABS: PLATELET ESTIMATE SMEAR NORMAL (NORMAL); PLATELET MORPHOLOGY NORMAL (NORMAL); SCAN/DIFF FINAL DIFF MANUAL
--- NOTE | 2016-10-20 08:37 | HHI.PR ---
Subjective Remarks Patient reports he is feeling better today. No fevers or chills. Headache is almost gone. Objective Vitals Vital Signs Date Time Temp Pulse Resp B/P (MAP) Pulse Ox O2 Delivery O2 Flow Rate FiO2 10/20/16 04:03 78 10/20/16 04:00 97.0 92 20 147/94 (111) 98 10/20/16 00:00 62 10/20/16 00:00 97.0 63 16 134/83 (100) 96 10/19/16 20:00 97.6 72 18 120/76 (91) 95 10/19/16 20:00 61 10/19/16 19:01 68 10/19/16 16:00 97.6 70 16 124/78 (93) 95 10/19/16 13:30 81 10/19/16 12:00 97.6 73 18 116/76 (89) 95 I/O 10/19/16 10/19/16 10/19/16 10/20/16 10/20/16 10/20/16 06:59 14:59 22:59 06:59 14:59 22:59 Intake Total 205 ml 1540 ml 1078 ml Output Total 400 ml Balance -195 ml 1540 ml 1078 ml Intake Oral 1440 ml IV Total 205 ml 100 ml 1078 ml Output Urine Total 400 ml # Voids 1 3 2 # Bowel Movements 2 Result Diagram: 10/20/16 0355 10/20/16 0355 Objective Remarks GENERAL: This is a well-nourished, well-developed patient, in no apparent distress. CARDIOVASCULAR: Normal rate and regular rhythm without murmurs, gallops, or rubs. RESPIRATORY: Good respiratory efforts. Breath sounds equal and clear to auscultation bilaterally. GASTROINTESTINAL: Abdomen soft, non-tender, non-distended. Normal active bowel sounds MUSCULOSKELETAL: Extremities without cyanosis, or edema. NEURO: Alert & Oriented x4 to person, place, time, situation. Moves all ext x4 PSYCH: Appropriate mood and affect. A/P Problem List: (1) Neutropenic fever ICD Code: D70.9 - Neutropenia, unspecified; R50.81 - Fever presenting with conditions classified elsewhere Status: Acute (2) Lymphoma ICD Code: C85.90 - Non-Hodgkin lymphoma, unspecified, unspecified site Status: Acute (3) Hypertension ICD Code: I10 - Essential (primary) hypertension (4) GERD (gastroesophageal reflux disease) ICD Code: K21.9 - Gastro-esophageal reflux disease without esophagitis Assessment and Plan 70-year-old male with history of hypertension, GERD, skin cancer and non-Hodgkin 's lymphoma on chemotherapy followed by Dr. Liriano. Last chemotherapy via port was over 2 weeks ago. He has been doing well until the day of admission when he developed fever associated with chills. He also initially complained of a sinus headache and neck soreness with fever. No visual changes, dizziness, numbness, focal weakness, nausea, cough, abdominal pain, UTI symptoms and diarrhea. No skin rash. Absolute neutrophil count is 0.26 and has been started on broad spectrum antibiotic with IV vancomycin and cefepime in the emergency department. Chest x-ray and urinalysis unremarkable. His oncologist requested admission to medicine service. Neutropenic fever. No clear source of infection. Chest x-ray and urinalysis unremarkable. Continue broad-spectrum antibiotic cefepime. DC Vancomycin. Follow-up blood culture. Patient has a port. Given persistent headache, MRI obtained but that is unremarkable. Headache resolving. 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 No neck stiffness. - Follow blood count. Sightly improved. Non-Hodgkin's lymphoma: Followed by Dr. Liriano. He has efrain consulted for assistance. Hypertension. Stable, continue amlodipine and benazepril and monitor GERD. Continue Prevacid n DVT prophylaxis with SCD and subcutaneous heparin Problem Qualifiers (1) Lymphoma: Qualified Codes: C85.90 - Non-Hodgkin lymphoma, unspecified, unspecified site Laron Lux MD Oct 20, 2016 08:37
[2016-10-20] MEDS ORDERED: PHARMACY ORDERED LAB ONE (08:45)
[2016-10-20] MEDS: VANCOMYCIN 1,000 MG/NS 250 ML IV SCH ×2 (09:05)
[2016-10-20] MEDS: amLODIPine BESYLATE 5 MG TAB PO SCH (09:06)
[2016-10-20] MEDS: PANTOPRAZOLE SOD 20 MG DELAYED RELEASE TAB PO SCH (09:06)
[2016-10-20] MEDS: LISINOPRIL 10 MG TAB PO SCH (09:06)
[2016-10-20] MEDS: SODIUM CHLORIDE 0.9% FLUSH 10 ML FLUSH IV FLUSH SCH ×2 (09:07→21:36)
[2016-10-20] MEDS: DOCUSATE SODIUM 50 MG/SENNA 8.6 MG TAB PO SCH ×2 (09:07→21:34)
[2016-10-20] MEDS: cloNIDine HCL 0.1 MG TAB PO PRN (23:20)
[2016-10-21] VITALS (7 sets, daily range): BP systolic 134–158; BP diastolic 94–98; PULSE 66–88; RESP 18; TEMP 96.5–97.6; O2SAT 94–97
[2016-10-21] MEDS: CEFEPIME INJ 2,000 MG in SODIUM CHLORIDE 0.9% INJ 100 ML IV SCH ×3 (04:55→21:53)
[2016-10-21] MEDS: HEPARIN SODIUM - SQ 10,000 UNITS/ML VIAL SQ SCH ×3 (04:57→21:54)
[2016-10-21 07:16] LABS: HEMATOCRIT 40.2 % (39.0-51.0); MEAN CELL VOLUME 88.4 FL (80.0-100.0); MEAN CORPUSCULAR HEMOGLOBIN 31.1 PG (27.0-34.0); MEAN CORPUSCULAR HGB CONC 35.3 % (32.0-36.0); PLATELET COUNT 200 TH/MM3 (150-450); RED BLOOD COUNT 4.55 MIL/MM3 (4.50-5.90); RED CELL DISTRIBUTION WIDTH 13.5 % (11.6-17.2); WHITE BLOOD COUNT 2.7 TH/MM3 (4.0-11.0)
[2016-10-21 07:53] LABS: HEMO FLAGS AUTO DIFF
[2016-10-21 08:53] LABS: BANDS 3 % (0-6); BASOPHILS 2 % (0-2); EOSINOPHILS 6 % (0-4); NEUTROPHIL # MANUAL DIFF 0.6 TH/MM3 (1.8-7.7); POLYS (SEG NEUTROPHILS) 20 % (16-70); WBC DIFF SAMPLE 100
[2016-10-21 08:54] LABS: PLATELET ESTIMATE SMEAR NORMAL (NORMAL); PLATELET MORPHOLOGY NORMAL (NORMAL); SCAN/DIFF FINAL DIFF MANUAL
--- NOTE | 2016-10-21 09:34 | MB ---
cc: LILI LIRIANO M.D. DATE OF CONSULTATION 10/20/2016 REASON FOR CONSULTATION Consult requested by hospitalist for followup of non-Hodgkin's lymphoma in a patient who is admitted for neutropenic fever. HISTORY OF PRESENT ILLNESS Cesar is a 70-year-old very pleasant white male who recently presented with back pain and underwent workup which showed retroperitoneal lymphadenopathy. The biopsy of the lymph node showed follicular B-cell non-Hodgkin cell lymphoma. He had a PET scan to stage his lymphoma which showed uptake in the mesentery and abdominal lymph node only. The bone marrow biopsy was negative. He was diagnosed with stage IIA non-Hodgkin's lymphoma follicular type. The patient was started on Rituxan and Treanda chemotherapy recently. The patient has tolerated the chemotherapy well. The patient stated that over the weekend he developed fever. He noticed chills and with that he came to the emergency room. In the emergency room, he had a blood test which showed pancytopenia with neutropenia. The patient is now admitted to the hospital for neutropenic fever. He is on the antibiotics and I have been asked to see him for further evaluation. The patient states that he has been having fever with chills. He denies any dysuria or diarrhea or cough, shortness of breath of or sore throat. His appetite is good. The rest of the review of systems is negative. PAST MEDICAL HISTORY 1. Diverticulosis 2. Gastroesophageal reflux disease 3. Hypercholesterolemia 4. Hypertension 5. Kidney stones 6. Follicular non-Hodgkin's lymphoma PAST SURGICAL HISTORY 1. Lymphoid node biopsy 2. Dupuytren's contracture 3. [id number] ALLERGIES None MEDICATIONS 1. Amlodipine 2. Lansoprazole 3. Chemotherapy Rituxan and Treanda FAMILY HISTORY Noncontributory SOCIAL HISTORY The patient does not smoke cigarettes. He does not drink alcohol. PHYSICAL EXAM This is a well-developed, well-nourished white male in no apparent distress. VITAL SIGNS: Temperature 97.5, heart rate is 70, blood pressure 138/83, O2 saturation 96%. HEENT: PERRLA, EOMI, anicteric. No oral lesions are noted. NECK: No lymphadenopathy noted. LUNGS: Clear. No wheezing, rhonchi or rales. HEART: Regular rate and rhythm. ABDOMEN: Soft and nontender. No hepatosplenomegaly. EXTREMITIES: No pedal edema. NEUROLOGIC: Awake, alert, and oriented times three. SKIN: No significant lesions noted. ASSESSMENT 1. Neutropenic fever. 2. Non-Hodgkin's lymphoma follicular type stage IIA status post Rituxan and Treanda chemotherapy on September 22. PLAN I have discussed with the patient and I have reviewed his available records. The patient had a CBC two days ago which showed a white count of 2.6, hemoglobin 14.6, hematocrit is 43.1, platelet count is 243. The differential count showed the absolute neutrophil count only 100. The patient has neutropenic fever, blood cultures have been done which are so far negative. A chest x-ray also came back negative. A urinalysis is also negative. The source of infection is unclear at the present time. My recommendation is to continue the present antibiotics. I expect his blood counts to improve in the next few days as he had chemotherapy almost a month on September 22. Further recommendations based on his hospital stay. Thank you for asking my opinion. Eric Liriano MD /[place] /9:39 PM /9:14 AM
[2016-10-21] MEDS: amLODIPine BESYLATE 5 MG TAB PO SCH ×2 (09:46→21:53)
[2016-10-21] MEDS: PANTOPRAZOLE SOD 20 MG DELAYED RELEASE TAB PO SCH (09:47)
[2016-10-21] MEDS: DOCUSATE SODIUM 50 MG/SENNA 8.6 MG TAB PO SCH ×2 (09:47→21:53)
[2016-10-21] MEDS: LISINOPRIL 10 MG TAB PO SCH (09:47)
[2016-10-21] MEDS: SODIUM CHLORIDE 0.9% FLUSH 10 ML FLUSH IV FLUSH SCH ×2 (09:52→21:53)
--- NOTE | 2016-10-21 12:38 | PD.ONC.PN ---
Subjective Subjective Remarks Afebrile overnight Blood cultures show no growth Patient reports he is feeling much better Objective Data Date Time Temp Pulse Resp B/P (MAP) Pulse Ox O2 Delivery O2 Flow Rate FiO2 10/21/16 11:39 66 10/21/16 08:00 96.5 83 18 155/95 (115) 96 10/21/16 04:00 96.9 86 18 144/94 (111) 95 10/21/16 00:20 16 10/21/16 00:00 97.0 75 18 154/98 (116) 94 10/20/16 20:00 97.2 75 18 149/94 (112) 95 10/20/16 16:00 97.2 68 16 134/95 (108) 96 Result Diagram: 10/21/16 0607 10/20/16 0355 Laboratory Results Laboratory Tests Test 10/21/16 06:07 White Blood Count 2.7 TH/MM3 Red Blood Count 4.55 MIL/MM3 Hemoglobin 14.2 GM/DL Hematocrit 40.2 % Mean Corpuscular Volume 88.4 FL Mean Corpuscular Hemoglobin 31.1 PG Mean Corpuscular Hemoglobin Concent 35.3 % Red Cell Distribution Width 13.5 % Platelet Count 200 TH/MM3 Mean Platelet Volume 8.1 FL CBC Comment AUTO DIFF Differential Total Cells Counted 100 Neutrophils % (Manual) 20 % Band Neutrophils % 3 % Lymphocytes % 28 % Monocytes % 41 % Eosinophils % 6 % Basophils % 2 % Neutrophils # (Manual) 0.6 TH/MM3 Differential Comment FINAL DIFF MANUAL Platelet Estimate NORMAL Platelet Morphology Comment NORMAL Red Cell Morphology Comment NORMAL Culture Results Microbiology Date/Time Source Procedure Growth Status 10/18/16 18:05 Blood Peripheral Aerobic Blood Culture - Preliminary NO GROWTH IN 3 DAYS Resulted 10/18/16 18:05 Blood Peripheral Anaerobic Blood Culture - Preliminary NO GROWTH IN 3 DAYS Resulted 10/18/16 18:00 Blood Peripheral Aerobic Blood Culture - Preliminary NO GROWTH IN 3 DAYS Resulted 10/18/16 18:00 Blood Peripheral Anaerobic Blood Culture - Preliminary NO GROWTH IN 3 DAYS Resulted Administered Medications Medications (Trade) Dose Ordered Sig/Salty Route PRN Reason Start Time Stop Time Status Last Admin Dose Admin Clonidine (Catapres) 0.1 mg Q6H PRN PO SBP> OR = 180, DBP> OR = 100 10/18/16 21:00 10/20/16 23:20 Cefepime HCl 2000 mg/Sodium Chloride 100 ml @ 200 mls/hr Q8H IV 10/19/16 05:00 10/21/16 04:55 Pantoprazole Sodium (Protonix) 20 mg DAILY PO 10/19/16 09:00 10/21/16 09:47 Sodium Chloride (NS Flush) 2 ml BID IV FLUSH 10/18/16 21:00 10/21/16 09:52 Acetaminophen (Tylenol) 650 mg Q4H PRN PO TEMP > 100.4 10/18/16 21:00 10/20/16 03:51 Heparin Sodium (Porcine) (Heparin Inj) 5,000 units Q8H SQ 10/18/16 21:00 10/21/16 04:57 Acetaminophen (Tylenol) 650 mg Q6H PRN PO PAIN SCALE 1 TO 2 10/18/16 21:00 10/20/16 23:20 Senna/Docusate Sodium (Monica-Colace) 1 tab BID PO 10/18/16 21:00 10/21/16 09:47 Amlodipine Besylate (Norvasc) 5 mg DAILY PO 10/18/16 21:15 10/21/16 09:46 Lisinopril (Prinivil) 10 mg DAILY PO 10/19/16 09:00 10/21/16 09:47 Objective Remarks GENERAL: Older male ambulating around his room in no acute distress SKIN: Warm and dry. HEAD: Normocephalic. EYES: No injection or drainage. NECK: Supple, trachea midline. CARDIOVASCULAR: Regular rate and rhythm without murmurs. RESPIRATORY: Clear posteriorly. Breathing unlabored. GASTROINTESTINAL: Abdomen soft, non-tender, nondistended. EXTREMITIES: No cyanosis, or edema. MUSCULOSKELETAL: Adequate muscle tone. NEUROLOGICAL: No obvious focal deficit. Awake, alert, and oriented x3. Assessment/Plan Problem List: (1) Neutropenic fever ICD Codes: D70.9 - Neutropenia, unspecified; R50.81 - Fever presenting with conditions classified elsewhere Status: Acute Plan: 10/21/16: Will give Neupogen to boost white blood cell count. Blood cultures negative. Continue cefepime. -- Last chemotherapy on September 22 with Rituxan and Treanda Hx: Patient originally presented with back pain and underwent workup which showed retroperitoneal lymphadenopathy. 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 Bone marrow biopsy was negative. He reports he developed fever over the weekend. Chest x-ray and urinalysis have also been negative for source of infection. Assessment 70 y/o male with history of non-Hodgkin's lymphoma admitted for neutropenic fever Attending Statement Patient feels better No more fevers or chills Wbc still low .Start Neupogen Continue antibiotic Home soon The exam, history, and the medical decision-making described in the above note were completed with the assistance of the mid-level provider. I reviewed and agree with the findings presented. I attest that I had a [id number] encounter with the patient on the same day, and personally performed and documented my assessment and findings in the medical record. Glenis Guillen Oct 21, 2016 12:38 Shanti Liriano MD Oct 22, 2016 05:42
[2016-10-21] MEDS ORDERED: FILGRASTIM 300 MCG/ML VIAL SQ SCH (14:00)
--- NOTE | 2016-10-21 15:15 | HHI.PR ---
Subjective Remarks Doing okay. No pain overnight. Objective Vitals Vital Signs Date Time Temp Pulse Resp B/P (MAP) Pulse Ox O2 Delivery O2 Flow Rate FiO2 10/21/16 12:00 97.0 88 18 158/97 (117) 97 10/21/16 11:39 66 10/21/16 08:00 96.5 83 18 155/95 (115) 96 10/21/16 04:00 96.9 86 18 144/94 (111) 95 10/21/16 00:20 16 10/21/16 00:00 97.0 75 18 154/98 (116) 94 10/20/16 20:00 97.2 75 18 149/94 (112) 95 10/20/16 16:00 97.2 68 16 134/95 (108) 96 I/O 10/20/16 10/20/16 10/20/16 10/21/16 10/21/16 10/21/16 07:00 15:00 23:00 07:00 15:00 23:00 Intake Total 1078 ml 730 ml 720 ml Balance 1078 ml 730 ml 720 ml Intake Oral 480 ml 720 ml IV Total 1078 ml 250 ml # Voids 2 3 2 # Bowel Movements 1 Result Diagram: 10/21/16 0607 10/20/16 0355 Other Results Microbiology Date/Time Source Procedure Growth Status 10/18/16 18:05 Blood Peripheral Aerobic Blood Culture - Preliminary NO GROWTH IN 3 DAYS Resulted 10/18/16 18:05 Blood Peripheral Anaerobic Blood Culture - Preliminary NO GROWTH IN 3 DAYS Resulted Objective Remarks GENERAL: This is a well-nourished, well-developed patient, in no apparent distress. CARDIOVASCULAR: Regular rate and rhythm RESPIRATORY: Clear to auscultation. Breath sounds equal bilaterally. No wheezes , rales, or rhonchi. GASTROINTESTINAL: Abdomen soft, non-tender, nondistended. Normal active bowel sounds MUSCULOSKELETAL: Extremities without clubbing, cyanosis, or edema. NEURO: Alert & Oriented x4 to person, place, time, situation. Moves all ext x4 A/P Problem List: (1) Neutropenic fever ICD Code: D70.9 - Neutropenia, unspecified; R50.81 - Fever presenting with conditions classified elsewhere Status: Acute (2) Lymphoma ICD Code: C85.90 - Non-Hodgkin lymphoma, unspecified, unspecified site Status: Acute (3) Hypertension ICD Code: I10 - Essential (primary) hypertension (4) GERD (gastroesophageal reflux disease) ICD Code: K21.9 - Gastro-esophageal reflux disease without esophagitis Assessment and Plan 70-year-old male with history of hypertension, GERD, skin cancer and non-Hodgkin 's lymphoma on chemotherapy followed by Dr. Liriano. Last chemotherapy via port was over 2 weeks ago. He has been doing well until the day of admission when he developed fever associated with chills. He also initially complained of a sinus headache and neck soreness with fever. No visual changes, dizziness, numbness, focal weakness, nausea, cough, abdominal pain, UTI symptoms and diarrhea. No skin rash. Absolute neutrophil count is 0.26 and has been started on broad spectrum antibiotic with IV vancomycin and cefepime in the emergency department. Chest x-ray and urinalysis unremarkable. His oncologist requested admission to medicine service. Neutropenic fever. No clear source of infection. Chest x-ray and urinalysis unremarkable. Continue broad-spectrum antibiotic cefepime. DC Vancomycin. Follow-up blood culture which shows no growth to date. Patient has a port. - Follow blood count. Neupogen given by hematalogy Non-Hodgkin's lymphoma: Followed by Dr. Liriano. Further recommendations per hematology. Hypertension labile. continue amlodipine and benazepril and monitor, increase amlodipine to twice a day due to labile blood pressures GERD. Continue Prevacid DVT prophylaxis with SCD and subcutaneous heparin Problem Qualifiers (1) Lymphoma: Qualified Codes: C85.90 - Non-Hodgkin lymphoma, unspecified, unspecified site Bozena Zapata MD Oct 21, 2016 15:15
[2016-10-21] MEDS: ACETAMINOPHEN 325 MG TAB PO PRN (18:03)
[2016-10-22] VITALS: BP 140/96; PULSE 86; RESP 18; TEMP 96.4; O2SAT 97
[2016-10-22 04:00] VITALS: BP 157/99; PULSE 89; RESP 18; TEMP 96.5; O2SAT 98
[2016-10-22] MEDS: CEFEPIME INJ 2,000 MG in SODIUM CHLORIDE 0.9% INJ 100 ML IV SCH ×2 (04:52→13:40)
[2016-10-22] MEDS: cloNIDine HCL 0.1 MG TAB PO PRN (04:52)
[2016-10-22] MEDS: HEPARIN SODIUM - SQ 10,000 UNITS/ML VIAL SQ SCH ×2 (04:53→13:40)
[2016-10-22 08:00] VITALS: BP 130/86; PULSE 77; RESP 18; TEMP 97.6; O2SAT 97
[2016-10-22] MEDS: DOCUSATE SODIUM 50 MG/SENNA 8.6 MG TAB PO SCH (09:00)
[2016-10-22 09:42] LABS: HEMATOCRIT 43.7 % (39.0-51.0); MEAN CELL VOLUME 89.4 FL (80.0-100.0); MEAN CORPUSCULAR HEMOGLOBIN 30.6 PG (27.0-34.0); MEAN CORPUSCULAR HGB CONC 34.3 % (32.0-36.0); PLATELET COUNT 226 TH/MM3 (150-450); RED CELL DISTRIBUTION WIDTH 13.7 % (11.6-17.2); WHITE BLOOD COUNT 17.7 TH/MM3 (4.0-11.0)
[2016-10-22 09:45] LABS: HEMO FLAGS AUTO DIFF
[2016-10-22 10:26] LABS: BANDS 10 % (0-6); EOSINOPHILS 3 % (0-4); METAMYELOCYTES 1 % (0-1); NEUTROPHIL # MANUAL DIFF 11.9 TH/MM3 (1.8-7.7); POLYS (SEG NEUTROPHILS) 56 % (16-70); WBC DIFF SAMPLE 100
[2016-10-22 10:27] LABS: PLATELET ESTIMATE SMEAR NORMAL (NORMAL); PLATELET MORPHOLOGY NORMAL (NORMAL); SCAN/DIFF FINAL DIFF MANUAL
[2016-10-22] MEDS: LISINOPRIL 10 MG TAB PO SCH (10:49)
[2016-10-22] MEDS: PANTOPRAZOLE SOD 20 MG DELAYED RELEASE TAB PO SCH (10:49)
[2016-10-22] MEDS: amLODIPine BESYLATE 5 MG TAB PO SCH (10:49)
[2016-10-22] MEDS: SODIUM CHLORIDE 0.9% FLUSH 10 ML FLUSH IV FLUSH SCH (10:51)
[2016-10-22 12:00] VITALS: BP 125/94; PULSE 90; RESP 18; TEMP 98.9; O2SAT 96
--- NOTE | 2016-10-22 14:17 | PD.ONC.PN ---
Subjective Subjective Remarks Afebrile Patient reports he feels great No acute complaints Objective Data Date Time Temp Pulse Resp B/P (MAP) Pulse Ox O2 Delivery O2 Flow Rate FiO2 10/22/16 12:00 98.9 90 18 125/94 (104) 96 10/22/16 08:00 97.6 77 18 130/86 (101) 97 10/22/16 04:00 96.5 89 18 157/99 (118) 98 10/22/16 00:00 96.4 86 18 140/96 (111) 97 10/21/16 20:00 97.2 82 18 152/96 (114) 96 10/21/16 16:00 97.6 86 18 134/95 (108) 96 10/22/16 10/22/16 10/22/16 07:00 15:00 23:00 Output Total 400 ml Balance -400 ml Result Diagram: 10/22/16 0834 10/20/16 0355 Laboratory Results Laboratory Tests Test 10/22/16 08:34 White Blood Count 17.7 TH/MM3 Red Blood Count 4.90 MIL/MM3 Hemoglobin 15.0 GM/DL Hematocrit 43.7 % Mean Corpuscular Volume 89.4 FL Mean Corpuscular Hemoglobin 30.6 PG Mean Corpuscular Hemoglobin Concent 34.3 % Red Cell Distribution Width 13.7 % Platelet Count 226 TH/MM3 Mean Platelet Volume 8.2 FL CBC Comment AUTO DIFF Differential Total Cells Counted 100 Neutrophils % (Manual) 56 % Band Neutrophils % 10 % Lymphocytes % 10 % Monocytes % 20 % Eosinophils % 3 % Neutrophils # (Manual) 11.9 TH/MM3 Metamyelocytes 1 % Differential Comment FINAL DIFF MANUAL Platelet Estimate NORMAL Platelet Morphology Comment NORMAL Administered Medications Medications (Trade) Dose Ordered Sig/Salty Route PRN Reason Start Time Stop Time Status Last Admin Dose Admin Clonidine (Catapres) 0.1 mg Q6H PRN PO SBP> OR = 180, DBP> OR = 100 10/18/16 21:00 10/22/16 04:52 Cefepime HCl 2000 mg/Sodium Chloride 100 ml @ 200 mls/hr Q8H IV 10/19/16 05:00 10/22/16 13:40 Pantoprazole Sodium (Protonix) 20 mg DAILY PO 10/19/16 09:00 10/22/16 10:49 Sodium Chloride (NS Flush) 2 ml BID IV FLUSH 10/18/16 21:00 10/22/16 10:51 Acetaminophen (Tylenol) 650 mg Q4H PRN PO TEMP > 100.4 10/18/16 21:00 10/20/16 03:51 Heparin Sodium (Porcine) (Heparin Inj) 5,000 units Q8H SQ 10/18/16 21:00 10/22/16 13:40 Acetaminophen (Tylenol) 650 mg Q6H PRN PO PAIN SCALE 1 TO 2 10/18/16 21:00 10/21/16 18:03 Senna/Docusate Sodium (Monica-Colace) 1 tab BID PO 10/18/16 21:00 10/21/16 09:47 Lisinopril (Prinivil) 10 mg DAILY PO 10/19/16 09:00 10/22/16 10:49 Amlodipine Besylate (Norvasc) 5 mg BID PO 10/21/16 21:00 10/22/16 10:49 Objective Remarks GENERAL: Older male sitting on side of bed with present SKIN: Warm and dry. HEAD: Normocephalic. EYES: No injection or drainage. NECK: Supple, trachea midline. CARDIOVASCULAR: Regular rate and rhythm without murmurs. RESPIRATORY: Clear posteriorly. Breathing unlabored. GASTROINTESTINAL: Abdomen soft, non-tender, nondistended. EXTREMITIES: No cyanosis, or edema. MUSCULOSKELETAL: Adequate muscle tone. NEUROLOGICAL: No obvious focal deficit. Awake, alert, and oriented x3. Assessment/Plan Problem List: (1) Neutropenic fever ICD Codes: D70.9 - Neutropenia, unspecified; R50.81 - Fever presenting with conditions classified elsewhere Status: Acute Plan: 10/22: Stop Neupogen as his white blood cells have increased significantly. Blood cultures show no growth 4 days. Okay for discharge from oncology standpoint. Would recommend he go home on Levaquin and follow up in clinic with Dr. Liriano next week. -- Last chemotherapy on September 22 with Rituxan and Treanda Hx: Patient originally presented with back pain and underwent workup which showed retroperitoneal lymphadenopathy. 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 Bone marrow biopsy was negative. He reports he developed fever over the weekend. Chest x-ray and urinalysis have also been negative for source of infection. Assessment 70 y/o male with history of non-Hodgkin's lymphoma admitted for neutropenic fever Attending Statement fells better Neutropenia resolved after neupogen Ok to d/c FU as outpt The exam, history, and the medical decision-making described in the above note were completed with the assistance of the mid-level provider. I reviewed and agree with the findings presented. I attest that I had a [id number] encounter with the patient on the same day, and personally performed and documented my assessment and findings in the medical record. Glenis Guillen Oct 22, 2016 14:16 Shanti Liriano MD Oct 22, 2016 18:04
--- NOTE | 2016-10-22 16:30 | HHI.DS ---
Discharge Summary Admission Date Oct 18, 2016 at 20:58 Discharge Date: Oct 22, 2016 Admitting Diagnosis neutropenic fever (1) Neutropenic fever ICD Code: D70.9 - Neutropenia, unspecified; R50.81 - Fever presenting with conditions classified elsewhere Diagnosis: Principal Status: Acute (2) Lymphoma ICD Code: C85.90 - Non-Hodgkin lymphoma, unspecified, unspecified site Diagnosis: Secondary Status: Chronic (3) Hypertension ICD Code: I10 - Essential (primary) hypertension Diagnosis: Secondary Status: Chronic Procedures none Brief History - From Admission This is a 70-year-old male with history of hypertension, GERD, skin cancer and non-Hodgkin's lymphoma on chemotherapy followed by Dr. Liriano. Last chemotherapy via port was over 2 weeks ago. He has been doing well until today when he developed fever associated with chills. He also has sinus headache and neck soreness with fever. No visual changes, dizziness, numbness, focal weakness, nausea, cough, abdominal pain, UTI symptoms and diarrhea. No skin rash. Absolute neutrophil count is 0.26 and has been started on broad spectrum antibiotic with IV vancomycin and cefepime in the emergency department. Chest x -ray and urinalysis unremarkable. His oncologist requested admission to medicine service. All other systems reviewed negative CBC/BMP: 10/22/16 0834 10/20/16 0355 Significant Findings Laboratory Tests Test 10/20/16 03:55 10/21/16 06:07 10/22/16 08:34 White Blood Count 3.1 TH/MM3 (4.0-11.0) 2.7 TH/MM3 (4.0-11.0) 17.7 TH/MM3 (4.0-11.0) Neutrophils % (Manual) 6 % (16-70) Monocytes % 46 % (0-8) 41 % (0-8) 20 % (0-8) Eosinophils % 11 % (0-4) 6 % (0-4) Neutrophils # (Manual) 0.4 TH/MM3 (1.8-7.7) 0.6 TH/MM3 (1.8-7.7) 11.9 TH/MM3 (1.8-7.7) Myelocytes 1 % (0-0) Promyelocytes 1 % (0-0) Chloride Level 108 MEQ/L (98-107) Band Neutrophils % 10 % (0-6) Imaging Last Impressions Brain MRI 10/19/16 0000 Signed Impressions: Service Date/Time: Wednesday, October 19, 2016 13:49 - CONCLUSION: 1. Volume loss without evidence for metastatic disease. 2. Minimal white matter disease. Tyrone Escobar MD Chest X-Ray 10/18/16 1734 Signed Impressions: Service Date/Time: Tuesday, October 18, 2016 17:45 - CONCLUSION: 1. Cardiomegaly. 2. Clear lungs. Jaden Easton Jr., MD PE at Discharge GENERAL: This is a well-nourished, well-developed patient, in no apparent distress. CARDIOVASCULAR: Regular rate and rhythm RESPIRATORY: Clear to auscultation. Breath sounds equal bilaterally. No wheezes , rales, or rhonchi. GASTROINTESTINAL: Abdomen soft, non-tender, nondistended. Normal active bowel sounds MUSCULOSKELETAL: Extremities without clubbing, cyanosis, or edema. NEURO: Alert & Oriented x4 to person, place, time, situation. Moves all ext x4 Pt update on day of discharge No complaint of chest pain or shortness of breath. Wants to go home. No further fever. Hospital Course These are the medical issues addressed during this hospitalization: 70-year-old male with history of hypertension, GERD, skin cancer and non-Hodgkin 's lymphoma on chemotherapy followed by Dr. Liriano. Last chemotherapy via port was over 2 weeks ago. He has been doing well until the day of admission when he developed fever associated with chills. He also initially complained of a sinus headache and neck soreness with fever. No visual changes, dizziness, numbness, focal weakness, nausea, cough, abdominal pain, UTI symptoms and diarrhea. No skin rash. Absolute neutrophil count is 0.26 and with started on broad spectrum antibiotic with IV vancomycin and cefepime in the emergency department. Chest x-ray and urinalysis unremarkable. His oncologist Dr. Liriano was consulted on this hospitalization. Neutropenic fever. No clear source of infection. Chest x-ray and urinalysis unremarkable. Continue broad-spectrum antibiotic cefepime. Vancomycin was later discontinued with no recurrent fevers. Follow-up blood culture which shows no growth to date. Patient has a port. - Follow blood count. Neupogen given by hematalogy 1 At this time, patient has gained maximum benefit from hospitalization and ready to be discharged to home; prescription for Levaquin given per hematologists recommendations. Non-Hodgkin's lymphoma: Followed by Dr. Liriano. Further recommendations per hematology. Hypertension continue amlodipine and benazepril GERD. Continue Prevacid DVT prophylaxis with SCD and subcutaneous heparin Pt Condition on Discharge: Good Discharge Disposition: Discharge Home Discharge Time: <= 30 minutes Discharge Instructions DIET: Follow Instructions for: Heart Healthy Diet Activities you can perform: Regular-No Restrictions Follow up Referrals: Oncology/Hematology @ [facility] with Shanti Liriano MD New Medications: Levofloxacin (Levaquin) 750 Mg Tablet 750 MG PO DAILY for Infection for 4 Days, #4 TAB 0 Refills Continued Medications: Amlodipine-Benazepril (Amlodipine-Benazepril) 5-10 Mg Cap 1 CAP PO DAILY for Blood Pressure Management, #30 CAP 0 Refills Bendamustine Inj (Treanda Inj) 25 Mg Inj 25 MG IV MONTHLY Lansoprazole (Prevacid) 15 Mg Capdr 15 MG PO DAILY for Reflux, CAP 0 Refills Bozena Zapata MD Oct 22, 2016 16:30
[2016-10-22] MEDS ORDERED: LEVA750T9 PO (16:32)
== END 2016-10-22 18:14 | disposition home or self-care (01) | DRG 809 ==
LOC: NEPC 17:14 → NEDA 20:58 → HOCB 22:18
PROVIDERS: ADMIT Family Medicine; ATTEND Family Medicine
DX: D70.9 Neutropenia, unspecified (principal); C85.90 Non-Hodgkin lymphoma, unspecified, unspecified site; R50.81 Fever presenting with conditions classified elsewhere; I10 Essential (primary) hypertension; Z85.828 Personal history of other malignant neoplasm of skin; R00.0 Tachycardia, unspecified; Z80.1 Family history of malignant neoplasm of trachea, bronchus and lung; K21.9 Gastro-esophageal reflux disease without esophagitis; R59.0 Localized enlarged lymph nodes; E78.00 Pure hypercholesterolemia, unspecified; Z87.442 Personal history of urinary calculi; R51 Headache
CPT/HCPCS: 70553; 71010; 80048; 80053; 81001; 83605; 85007; 85027; 85610; 85730; 87040; 93005; 96361; 96365; A9579; J0692; J1442; J1644; J3370; J7030; J7050